=== PATIENT | male | born 1950 | race Caucasian/White ===

== ENCOUNTER 2022-04-05 15:09 | Outpatient (CLI) | payer MEDICARE, OTHER ==
--- NOTE | 2022-04-05 16:29 | XRAY Report ---
PROCEDURE: Pelvis 1 View INDICATIONS: LOW BACK PAIN TECHNIQUE: David view of the pelvis COMPARISON: None. FINDINGS: There is mild bilateral hip joint space narrowing and small collar osteophytes. IMPRESSION: Mild to moderate bilateral hip osteoarthritis. Reviewed by: Jessy Rondon MD on 04/05/2022 4:28 PM PDT Approved by: Jessy Rondon MD on 04/05/2022 4:28 PM PDT Station ID: [id number]
--- NOTE | 2022-04-05 16:32 | XRAY Report ---
PROCEDURE: Lumbar Spine 2 View INDICATIONS: LOW BACK PAIN TECHNIQUE: 3 views of the lumbar spine were acquired. COMPARISON: None. FINDINGS: Bones: There are likely 5 nonrib-bearing lumbar vertebral bodies with exaggerated lordosis at the lum bosacral junction. There is grade IL4 on L5 anterolisthesis. A moderate compression deformity is pres ent at the first nonrib-bearing lumbar vertebral body with approximately 20% vertebral body height lo ss. Soft tissues: Overlying bowel gas pattern is normal. No suspicious soft tissue calcifications. IMPRESSION: 1. Saturated lordosis at the lumbosacral junction with anterolisthesis at L4-5. 2. Compression deformity at L1, the acuity of which is unknown without prior studies. If further david acterization is warranted to determine the acuity of this finding, noncontrast MRI of the lumbar spin e could be used to evaluate for marrow edema. Reviewed by: Jessy Rondon MD on 04/05/2022 4:30 PM PDT Approved by: Jessy Rondon MD on 04/05/2022 4:30 PM PDT Station ID: [id number]
--- NOTE | 2022-04-05 18:49 | XRAY Report ---
PROCEDURE: Cervical Spine 2 View INDICATIONS: NECK PAIN TECHNIQUE: 4 view(s) of the cervical spine were acquired. COMPARISON: None. FINDINGS: Bones: No fractures or dislocations to the T1 level. The lateral masses of C1 appear intact on the odontoid view. No suspicious bony lesions. Facet sclerosis noted throughout the cervical spine. Grad e 1 anterior spinal listhesis present at the C4-5. Normal bone mineralization. Disc space and narrowi ng and anterior osteophytes present lower cervical spine. Soft tissues: No prevertebral soft tissue swelling. IMPRESSION: Multilevel degenerative disc disease and arthropathy associated with grade 1 anterior spondylolisthes is at C4-5 Reviewed by: Julian Campos MD on 04/05/2022 5:48 PM AKNIGEL Approved by: Julian Campos MD on 04/05/2022 5:48 PM AKDT Station ID: [id number]
== END 2022-04-05 15:10 | disposition home or self-care (01) ==
LOC: DI.N 15:09
PROVIDERS: ATTEND Internal Medicine Rheumatology
DX: M50.30 Other cervical disc degeneration, unspecified cervical region (principal); M43.12 Spondylolisthesis, cervical region; M40.56 Lordosis, unspecified, lumbar region; M43.16 Spondylolisthesis, lumbar region; M43.8X6 Other specified deforming dorsopathies, lumbar region; M16.0 Bilateral primary osteoarthritis of hip

== ENCOUNTER 2022-05-17 13:01 | Outpatient (CLI) | payer MEDICARE, OTHER ==
[2022-05-17 13:55] VITALS: BP 127/80
--- NOTE | 2022-05-17 13:55 | SLEEP CARE CONSULTATION ---
Information from patient questionnaire entered by Andrew Beauchamp MA. I have reviewed and concur with the information entered by Andrew Beauchamp MA. This document represents the service I personally performed and the decisions made by , Kamille Menendez ARNP. History of Present Illness Service Date and Time: 05/17/2022 1301 Reason for Visit: New patient (ON CPAP, NEED CHIP, ), Previously diagnosed sleep apnea, sleep apnea on CPAP therapy, Other (CHANGE TO MEDICARE INSURANCE) Chief Complaint: reports: Other (needs supplies and new machine) Usual bedtime: 1100 PM Time it takes to fall asleep: 15 MINUTES Snores at night: No Observed to quit breathing while asleep: Yes Sleeps alone due to snoring: No Number of times waking at night: 1 Reasons for waking at night: reports: Bathroom, Other Toss, Turn, or Twitch while sleeping: No Recalls having dreams: No Usually gets out of bed at: 0630 Feels refreshed in the morning: No Morning headache: No Sleepy or fatigued during the day: Yes Ever fallen asleep while driving: No Takes day naps: No Prior sleep studies: Yes Year and Where: [facility] 2004 Additional HPI information: SELENE ROBERSON was previously diagnosed to have unknown, AHI unknown, sleep apnea-hypopnea syndrome and comes in today to establish care for CPAP therapy. - Parasomnia Symptoms Ever been unable to move upon waking from sleep: No Walks in sleep: No Talks in sleep: No Ever acted out dreams in sleep: No Ever felt weak in the knees when startled or emotional: No Bothered by creepy, crawly, restless sensations in legs: Yes Problems with memory or concentration: Yes CPAP Compliance Data - Data Reviewed with Patient Average duration of nightly device use: 7.48 hrs Compliance rate %: 96 (29/30 days > 4 hrs) Current pressure setting (cmH2O): 9-14 Compliance data discussion: He was using [employer] until about 4 years ago when he stopped receiving supplies. He has been doing without and finding spare supplies to use. His machine is a Kitty Respironics System One that he received in 2011. He is using a nasal pillows mask with good results. Subjective Patient concerns: reports: mask discomfort (headgear not fitting as well), mask leak noise (due to need new mask). denies: aerophagia, air blowing in eyes, co ndensation in mask/hose, nasal congestion, dry mouth, nose, throat, epistaxis, other Observed to snore while using device: No Current pressure setting perceived as: comfortable (but may not be putting out as much air as it did before) On therapy, patient: reports: sleeping better, awakening more refreshed, being more awake and alert during the day, more rested overall. denies: drowsiness while driving Initial Susan Sleepiness Scale score: 3 (05/2022) Past Medical History Past Medical History: reports: Coronary Heart Disease, Gout, Arrythmia Social History The patient's occupation is a RETIRED. Patient is and lives in . Have you smoked in the past 12 months: No Alcohol use: No Caffeine use: Yes Caffeine amount and frequency: 1-2 sodas; 1-2 times a week Family History Family history of sleep disordered breathing: Yes Family Hx Sleep Apnea: Father: Snoring, Sleep apnea - Treated Allergies and Home Medications Known drug allergies: Yes (PNC) Drug allergies reviewed: Yes (Penicillin) Home medication list reviewed: Yes Allergy and home medication list: Medications Lisinopril Carvedilol 25 mg Warfarin 2.5 mg Allopurinol Colcichine Review of Systems Weight gain over past 5 years: 10 lbs Cardiovascular: reports: irregular heart rate or pulse, have to sleep sitting up Respiratory: reports: shortness of breath, wheeze Ear/Nose/Throat: reports: wisdom teeth removed Endocrine: reports: sluggishness Musculoskeletal: reports: joint pain, neck pain, back pain Immunologic: reports: sneezing Physical Exam Vital signs obtained and entered by: Elle BEAUCHAMP CMA [facility] Blood Pressure: 127/80 (RESP 20, PULSE 81, RIGHT) Cuff size: wrist Heart Rate: 97 O2 Saturation: 97 Height: 6 ft 4 in Weight: 245 lb (CLOTHES) Weight change since last visit: WANTS TO LOSE WEIGHT, Body Mass Index: 29.8 BMI Classification: Overweight Neck circumference: 15.5 (INCHES) Heart: irregular rhythm Lungs: clear bilaterally Impression and Plan 1. Obstructive Sleep Apnea-Hypopnea Syndrome, unknown, with good treatment compliance and unknown apnea control. On CPAP therapy, the patient has better sleep quality and is more rested overall. Patient had a sleep study in [address] [facility]. We are waiting to request a copy of that sleep study. If you are unable to obtain it we will order another sleep study to verify his diagnosis and severity. Patient has a Kitty System One that he's had since 2011. Patient has already registered their device for the recall. Patient denies any black particles seen in machine or hoses, any unusual odors coming from device. Patient has not experienced any physical symptoms such as upper airway irritation, headache, skin or eye irritation, asthma, nausea/vomiting, difficulty breathing or chest pain. If patient is not able to sleep due to waking up choking, gasping for air or other respiratory distress that they may decide to continue using it until it is either replaced or repaired. Since the patients current machine is at least 5 years old, the patient is opting to update their device with a device that is not on the recall. Patient voiced understanding and agreement with plan. Patient's apnea severity and rationale for treatment to reduce apnea, improve sleep quality and reduce cardiovascular and cerebrovascular events was reviewed. I also reviewed the benefit of consistent device use of CPAP for cardiac disease and arrhythmia. Patient was encouraged to lose weight. * Continue auto CPAP pressure at 9-14 cmH2O * Obtain last sleep study * Order to update CPAP device and supplies once we get sleep study report * Notify me if snoring with mask or feeling that the pressure is too much or too little * Attempt to lose weight * Call this office if any problems using CPAP * Return for follow up one month after obtaining new device, or sooner if concerns arise Counseling Topics: Spare mask, Weight loss health impact Visit Type: In Office Time Spent with Patient (minutes): 32 Provider Statement: I spent 100% of the Face to Face Visit with the patient with greater than 50% spent counseling the patient and coordination of care.
== END 2022-05-17 13:02 | disposition home or self-care (01) ==
LOC: SC 13:01
PROVIDERS: ATTEND Nurse Practitioner Family
DX: G47.33 Obstructive sleep apnea (adult) (pediatric) (principal); E66.3 Overweight; Z68.29 Body mass index [BMI] 29.0-29.9, adult
CPT/HCPCS: 99203; G0463; 99212

== ENCOUNTER 2022-05-25 20:30 | Outpatient (CLI) | payer MEDICARE, OTHER | END 2022-05-25 20:31 | disposition home or self-care (01) | LOC: SC 20:30 | PROVIDERS: ATTEND Nurse Practitioner Family | DX: G47.33 Obstructive sleep apnea (adult) (pediatric) (principal) | CPT/HCPCS: 95810 ==

== ENCOUNTER 2022-06-12 09:54 | Outpatient (CLI) | payer MEDICARE, OTHER ==
--- NOTE | 2022-06-12 10:26 | SLEEP CARE CONSULTATION ---
Information from patient questionnaire entered by Andrew Adams MA. I have reviewed and concur with the information entered by Andrew Adams MA. This document represents the service I personally performed and the decisions made by Gemma moore Caren J, ARNP. History of Present Illness Service Date and Time: 06/12/2022 0954 Initial Rocky Sleepiness Scale score: 3 (05/2022) Current Rocky Sleepiness Scale score: 8 (06/12/2022) Additional HPI information: SELENE ROBERSON returns for follow up and results of the recently performed polysomnography. Patient has mild obstructive sleep apnea with an average AHI of 10.5 and anushka oxygen saturation of 87%. Patient with a history of being on CPAP with pressure settings 9-14 cmH2O. We were unable to obtain his last sleep study and thus ordered a sleep study to verify his diagnosis and severity. Patient to continue with the nasal CPAP therapy. Nasal autoCPAP set at 9-14 cmH20 will be ordered with rationale explained. Patient does not drink alcohol. Patient was cautioned about risks of drowsy driving until sleepiness symptoms resolve. Patient denies drowsy driving. Sleep Study - Results Type of Sleep Study: Polysomnography (F/U POLY, 05/25/2022, POS,) Prior sleep studies: Yes Year and Where: [facility] 2004 Polysomnography/Home Sleep Study results: IMPRESSION: The quality of the study is good. The patient had poor sleep efficiency due to several prolonged awakenings during the night The sleep architecture was abnormal for sleep fragmentation and reduced amount of time spent in REM sleep. Respiratory monitoring showed mild obstructive sleep apnea-hypopnea (AHI = 10.5) associated with frequent arousals, oxyhemoglobin desaturation and mild hypoxia (anushka oxygen saturation of 87%). The respiratory events occurred mainly during supine sleep (supine AHI = 26.4; non-supine = 9.32). Snore was moderate in intensity. There was no significant periodic leg movement of sleep. Cardiac rhythm was atrial fibrillation with occasional premature ventricular contractions. No abnormal behavior (parasomnia) observed during the night. Allergies and Home Medications Known drug allergies: No (NKA) Drug allergies reviewed: Yes Home medication list reviewed: Yes (no changes) Review of Systems Review of systems same as previous: Yes (no changes) Physical Exam Vital signs obtained and entered by: RANDOLPH VENCES Blood Pressure: 129/96 (RIGHT, PULSE 84, RESP 20) Heart Rate: 84 O2 Saturation: 97 Height: 6 ft 4 in Weight: 243 lb (CLOTHES) Body Mass Index: 29.5 BMI Classification: Overweight Impression and Plan 1. Obstructive Sleep Apnea-Hypopnea Syndrome, mild. On CPAP therapy, the patient has better sleep quality and is more rested overall. Patient needs to update his CPAP and supplies. I will have my front office coordinator inform of DME options. A [facility]O prescription will then be made. Patient advised to contact this office if further supply problems. The patients CPAP is over 5 years old and of reasonable use. Thus, the CPAP will be updated. A [facility]O prescription will be made. Compliance guidelines for new device and follow up discussed. Patient's apnea severity and rationale for treatment to reduce apnea, improve sleep quality and reduce cardiovascular and cerebrovascular events was reviewed. I also reviewed the benefit of consistent device use of CPAP for cardiac disease and arrhythmia. * Continue auto CPAP pressure at 9-14 cmH2O * Transfer DME * Update machine * Update supplies * Notify me if snoring with mask or feeling that the pressure is too much or too little * Attempt to lose weight * Call this office if any problems using CPAP * Return for follow up one month after obtaining new CPAP, or sooner if concerns arise Counseling Topics: Weight loss health impact Visit Type: In Office Time Spent with Patient (minutes): 20 Provider Statement: I spent 100% of the Face to Face Visit with the patient with greater than 50% spent counseling the patient and coordination of care.
[2022-06-12 10:27] VITALS: BP 129/96
== END 2022-06-12 09:55 | disposition home or self-care (01) ==
LOC: SC 09:54
PROVIDERS: ATTEND Nurse Practitioner Family
DX: G47.33 Obstructive sleep apnea (adult) (pediatric) (principal); E66.3 Overweight; Z68.29 Body mass index [BMI] 29.0-29.9, adult
CPT/HCPCS: 99213; G0463; 99212

== ENCOUNTER 2022-08-08 08:40 | Outpatient (CLI) | payer MEDICARE, OTHER ==
[2022-08-08 09:23] VITALS: BP 100/64
--- NOTE | 2022-08-08 09:23 | SLEEP CARE CONSULTATION ---
Information from patient questionnaire entered by Braulio Gonzalez. I have reviewed and concur with the information entered by Braulio Gonzalez. This document represents the service I personally performed and the decisions made by , Kamille Menendez ARNP. History of Present Illness Service Date and Time: 08/08/2022 0840 Previous diagnosis: Mild, Obstructive Sleep Apnea-Hypopnea Syndrome AHI: 10.5 (in 2021) Reason for follow up: first compliance (SET UP 07/06/22, RESMED), first compliance after device update Equipment type: CPAP (ResMed) Mask style: Nasal pillows Mask brand: [employer] Backup mask available: Yes (other mask) Prior sleep studies: Yes Year and Where: [facility] 2004 Type of Sleep Study: Polysomnography (F/U POL[facility], 05/25/2022, POS,) HPI additional information: SELENE ROBERSON was diagnosed to have mild, AHI 10.5, obstructive sleep apnea- hypopnea syndrome and returned today for CPAP therapy first compliance with device update follow-up. Sleep Study - Results Type of Sleep Study: Polysomnography (F/U [facility], 05/25/2022, POS,) Prior sleep studies: Yes Year and Where: 2004 CPAP Compliance Data - Data Reviewed with Patient Average duration of nightly device use: 8 hours 23 minutes Compliance rate %: 100 (30/30 days used) Current pressure setting (cmH2O): 9-13 Average residual AHI: 2.2 Central apnea: 1.2 Obstructive apnea: 0.6 Average large leak: 8.4 L/min Subjective Patient concerns: reports: aerophagia (due to stomach problems, not CPAP), mask discomfort, air blowing in eyes, dry mouth, nose, throat (mouth, sometimes). denies: mask leak noise, condensation in mask/hose, nasal congestion, epistaxis Observed to snore while using device: No Current pressure setting perceived as: comfortable On therapy, patient: reports: sleeping better, awakening more refreshed, being m ore awake and alert during the day, more rested overall. denies: drowsiness while driving Initial Bradford Sleepiness Scale score: 3 (05/2022) Current Bradford Sleepiness Scale score: 3 (08/08/22) Allergies and Home Medications Drug allergies reviewed: Yes (penicillin - hives) Home medication list reviewed: Yes (omeprazole) Review of Systems Review of systems same as previous: No (stomach ulcer and sores in esophagus) Physical Exam Vital signs obtained and entered by: VINITA RESENDIZ Blood Pressure: 100/64 (left arm ) Cuff size: regular Heart Rate: 49 O2 Saturation: 97 Height: 6 ft 4 in Weight: 243 lb Body Mass Index: 29.5 BMI Classification: Overweight Impression and Plan 1. Obstructive Sleep Apnea-Hypopnea Syndrome, mild, with excellent treatment c ompliance and good apnea control. On CPAP therapy, the patient has better sleep quality and is more rested overall. Patient is not happy with the new DME because of multiple supply problems since getting his new device. He like the ResMed CPAP and is satisfied with current pressure therapy. He has significant improvement of his sleep apnea. Patient's apnea severity and rationale for treatment to reduce apnea, improve sleep quality and reduce cardiovascular and cerebrovascular events was reviewed. I also reviewed the benefit of consistent device use of CPAP for cardiac disease and arrhythmia. 2. Overweight, unspecified. Currently patients BMI is 29.5. Thus patient is advised to lose weight. Weight loss can be done with reducing portion size, reducing refined foods and balancing content with vegetables, fruit and whole grain foods. In addition, patient encouraged to get regular exercise. * Continue auto CPAP pressure at 9-14 cmH2O * Notify me if snoring with mask or feeling that the pressure is too much or too little * Attempt to lose weight * Call this office if any problems using CPAP * Return for follow up in 1 year, or sooner if concerns arise Counseling Topics: Spare mask, Weight loss health impact Visit Type: In Office Time Spent with Patient (minutes): 26 Provider Statement: I spent 100% of the Face to Face Visit with the patient with greater than 50% spent counseling the patient and coordination of care.
== END 2022-08-08 08:41 | disposition home or self-care (01) ==
LOC: SC 08:40
PROVIDERS: ATTEND Nurse Practitioner Family
DX: G47.33 Obstructive sleep apnea (adult) (pediatric) (principal); E66.3 Overweight; Z68.29 Body mass index [BMI] 29.0-29.9, adult
CPT/HCPCS: 99213; G0463; 99212